=== PATIENT | female | born 1950 | race Caucasian/White ===

== ENCOUNTER 2017-01-23 13:18 | Outpatient (CLI) | payer MEDICARE, OTHER | END 2017-01-23 13:19 | disposition home or self-care (01) | DX: Z12.31 Encounter for screening mammogram for malignant neoplasm of breast (principal); R93.8 Abnormal findings on diagnostic imaging of other specified body structures | CPT/HCPCS: 71020; G0202 ==

== ENCOUNTER 2017-01-26 10:11 | Outpatient (CLI) | payer MEDICARE, OTHER ==
--- NOTE | 2017-01-27 14:36 | DEXA Report ---
DEXA SCAN: 01/26/2017 CLINICAL INDICATION: Postmenopausal. TECHNIQUE: Dual energy x-ray absorptiometry (DXA) was performed on a [employer] system. Regions measured are the lumbar spine and left forearm. COMPARISON: None. In accordance with the International Society for Clinical Densitometry (ISCD) guidelines, data from previous exams may be reanalyzed using current recommendations and techniques. This is done to allow a more accurate basis for comparison with the current study. FINDINGS: The data for the lumbar spine is as follows: REGION BMD (g/cm/cm) T-SCORE Z-SCORE L1 0.791 -2.8 -2.4 L2 0.803 -3.3 -2.8 L3 0.723 -4.0 -3.5 L4 0.785 -3.5 -3.0 TOTAL 0.774 -3.4 -2.9 NOTE: All evaluable vertebrae are used for classification. The data for the forearm is as follows: REGION BMD (g/cm/cm) T-SCORE Z-SCORE 1/3 0.575 -3.4 -1.8 NOTE: The 33% radius of the nondominant forearm is used for classification. * Denotes significant change at the 95% confidence level. Denotes dissimilar scan types or analysis methods. IMPRESSION: 1. THE WHO CLASSIFICATION BASED ON THE INTERNATIONAL REFERENCE STANDARD IS OSTEOPOROSIS. THE FRACTURE RISK IS HIGH. 2. LEFT FOREARM EVALUATION PERFORMED SECONDARY TO BILATERAL HIP REPLACEMENTS. RECOMMENDATION: Patients with diagnosis of osteoporosis or osteopenia should have regular bone mineral density assessment. For those eligible for Medicare, routine testing is allowed once every 2 years. Testing frequency can be increased for patients who have rapidly progressing disease or for those who are receiving medical therapy to restore bone mass. COMMENT: World Health Organization (WHO) definitions for osteoporosis and osteopenia: NORMAL BMD: T-score at -1.0 or higher, fracture risk is low. OSTEOPENIA BMD: T-score between -1.0 and -2.5, fracture risk is increased. OSTEOPOROSIS BMD: T-score at -2.5 or lower, fracture risk high. National Osteoporosis Foundation recommends: 1. Obtain adequate dietary calcium (at least 1200 mg per day) and vitamin D (400 -800 international units per day). 2. Participate, as appropriate, in regular weightbearing and muscle- strengthening exercise. 3. Avoid tobacco use and reduce alcohol and caffeine intake. 4. For more detailed information see the website at www.NOF.org. MTDD
== END 2017-01-26 10:12 | disposition home or self-care (01) ==
LOC: DI 10:11
PROVIDERS: ATTEND Physician Assistant
DX: M81.0 Age-related osteoporosis without current pathological fracture (principal); N95.9 Unspecified menopausal and perimenopausal disorder; Z96.643 Presence of artificial hip joint, bilateral
CPT/HCPCS: 77080; 77081

== ENCOUNTER 2018-03-20 16:17 | Emergency (ER) | payer MEDICARE, OTHER ==
[2018-03-20] MEDS ORDERED: PROMETHAZINE INJ 25 MG in SODIUM CHLORIDE 0.9% 50 ML IV STA (16:35)
[2018-03-20] MEDS ORDERED: MORPHINE 2 MG/ML SYRINGE IVP STA (16:35)
[2018-03-20] MEDS ORDERED: SODIUM CHLORIDE 0.9% 1,000 ML IV ONE (16:35)
--- NOTE | 2018-03-20 16:36 | ED Physician Documentation ---
PD HPI ABD PAIN - Stated complaint Stated Complaint: NAUSEA - Chief complaint Chief Complaint: Abd Pain - History obtained from History obtained from: Patient - History of Present Illness Timing - onset: Other (This is a kamilah 67-year-old woman with chronic pain maintained on morphine who had a laparoscopic colectomy a month ago and then 4 days ago laparoscopic cholecystectomy. Postoperatively she was maintained on Zofran but this was ineffective and continued to have vomiting and now just has dry retching. Not much in the way of bowel movements. She feels very weak and dehydrated. There is no associated fever and pain is not too bad.) Review of Systems Ten Systems: 10 systems reviewed and negative Constitutional: denies: Fever, Chills GI: reports: Nausea, Vomiting. denies: Constipation, Diarrhea PD PAST MEDICAL HISTORY - Past Medical History Cardiovascular: High cholesterol Respiratory: Asthma, Pneumonia Neuro: Head injury Endocrine/Autoimmune: HyPOthyroidism GI: Cholelithiasis Psych: Depression Musculoskeletal: Osteoarthritis - Past Surgical History Past Surgical History: Yes Ortho: Hip replacement, Knee replacement HEENT: Tonsil/Adenoidectomy - Present Medications Home Medications: Ambulatory Orders Medication Instructions Recorded Confirmed Hydrocodone/Acetaminophen [Vicodin 1 each PO 3-4XD 04/15/13 12/25/15 Hp 10-300 mg Tablet] Levothyroxine Sodium [Synthroid] 137 mcg PO DAILY 04/15/13 12/25/15 Morphine Sulfate 15 mg PO 3-4XD 04/15/13 12/25/15 Albuterol [Proventil Hfa] 1 puffs INH ONCE PRN 10/04/13 12/25/15 Ergocalciferol (Vitamin D2) 50,000 units PO BID 04/22/14 12/25/15 [Vitamin D2] Amoxicillin/Potassium Clav 1 tab PO DAILY 12/25/15 12/25/15 [Augmentin 875-125 Tablet] Propranolol [Inderal] 10 mg PO PRN 12/25/15 12/25/15 Dicyclomine [Bentyl] 20 mg PO QID PRN #20 capsule 11/07/16 Promethazine [Phenergan] 25 - 50 mg PO Q6H PRN #15 tab 11/07/16 Benzonatate 200 mg PO TID PRN #20 capsule 03/20/18 Guaifenesin/Dextromethorphan 1 each PO BID PRN #20 tab.er.12h 03/20/18 [Mucinex Dm ER 1,200-60 mg Tab] Promethazine [Phenergan] 25 - 50 mg PO Q6H PRN #15 tab 03/20/18 - Allergies Allergies/Adverse Reactions: Allergies Allergy/AdvReac Type Severity Reaction Status Date / Time alendronate sodium AdvReac Cramps Verified 03/20/18 16:26 [From Fosamax] sulfamethoxazole AdvReac Nausea Verified 03/20/18 16:25 [From Bactrim] trimethoprim [From Bactrim] AdvReac Nausea Verified 03/20/18 16:25 - Social History Does the pt smoke?: No Smoking Status: Never smoker Does the pt drink ETOH?: No Does the pt have substance abuse?: No - Immunizations Immunizations are current?: Yes - POLST Patient has POLST: No PD ED PE NORMAL - Vitals Vital signs reviewed: Yes - General General: Alert and oriented X 3, No acute distress - Cardiac Cardiac: RRR, No murmur - Respiratory Respiratory: No respiratory distress, Clear bilaterally - Abdomen Abdomen: Normal bowel sounds, Soft, Other (Laparoscopic incisions are clean dry and intact, there is no significant tenderness, bowel tones are normal.) - Derm Derm: Normal color, Warm and dry - Extremities Extremities: No edema, No calf tenderness / cord - Neuro Neuro: Alert and oriented X 3, Normal speech Results - Vitals Vitals: Vital Signs - 24 hr 03/20/18 03/20/18 16:20 17:29 Temperature 36.4 C L Heart Rate 61 52 L Respiratory 16 16 Rate Blood Pressure 137/89 H 143/63 H O2 Saturation 96 95 Oxygen O2 Source Room air - Labs Labs: Laboratory Tests 03/20/18 16:35 Sodium 131 L Potassium 2.8 L Chloride 96 L Carbon Dioxide 24 Anion Gap 11.0 BUN 6 Creatinine 0.6 Estimated GFR (MDRD) 99 Glucose 123 H Calcium 8.4 L Total Bilirubin 0.5 AST 44 H ALT 90 H Alkaline Phosphatase 236 H Total Protein 6.9 Albumin 3.3 Globulin 3.6 Albumin/Globulin Ratio 0.9 L Lipase 14 L PD MEDICAL DECISION MAKING - ED course ED course: 67-year-old woman with postoperative nausea and vomiting and evidence of dehydration and hypokalemia on labs. Potassium was repleted Intravenously and she passed an oral challenge, she had good relief with Phenergan here, she is also had a cough for a few days and requests something for that. Departure - Departure Disposition: 01 Home, Self Care Clinical Impression: Vomiting Condition: Good Record reviewed to determine appropriate education?: Yes Instructions: ED Nausea Vomiting Prescriptions: Benzonatate 200 mg PO TID PRN #20 capsule PRN Reason: Cough Guaifenesin/Dextromethorphan [Mucinex Dm ER 1,200-60 mg Tab] 1 each PO BID PRN # 20 tab.er.12h PRN Reason: Congestion Promethazine [Phenergan] 25 - 50 mg PO Q6H PRN #15 tab PRN Reason: Nausea / Vomiting Comments: Call your doctor to arrange a follow-up appointment, make the next available appointment. In the interim, return anytime if worse or if new symptoms develop. Your blood pressure was elevated today on check into the emergency department. This does not mean that you have hypertension, it is a common phenomenon to come to the emergency department and have elevated blood pressure. I recommend that you see your primary care physician within the week to have it rechecked when you are feeling better.
[2018-03-20] MEDS ORDERED: MORPHINE 10 MG/ML VIAL IVP STA (16:46)
[2018-03-20 16:59] LABS: ALBUMIN 3.3 g/dL (3.2-5.5); ALBUMIN/GLOBULIN RATIO 0.9 (1.0-2.2); BILIRUBIN,TOTAL 0.5 mg/dL (0.2-1.0); CALCIUM 8.4 mg/dL (8.5-10.3); CREATININE 0.6 mg/dL (0.4-1.0); TOTAL PROTEIN 6.9 g/dL (6.7-8.2)
[2018-03-20] MEDS ORDERED: LACTATED RINGERS 1,000 ML IV STA (17:19)
[2018-03-20] MEDS ORDERED: POTASSIUM CHLOR 10 MEQ/100 ML 10 MEQ/100 ML BAG IV ONE (17:19)
[2018-03-20 18:39] VITALS: BP 131/70
== END 2018-03-20 18:38 | disposition home or self-care (01) ==
LOC: ED 16:17
DX: R11.2 Nausea with vomiting, unspecified (principal); R53.1 Weakness; R10.9 Unspecified abdominal pain; E78.00 Pure hypercholesterolemia, unspecified; E03.9 Hypothyroidism, unspecified; M19.90 Unspecified osteoarthritis, unspecified site; R03.0 Elevated blood-pressure reading, without diagnosis of hypertension
CPT/HCPCS: 80053; 83690; 96361; 96365; 96367; 96375; 99283; J2270; J7040; J7120; 36415